=== PATIENT | male | born 1995 | race Two or more races ===

== ENCOUNTER 2022-11-01 18:01 | Outpatient (REF) | payer OTHER, SELFPAY ==
[2022-11-01 18:40] LABS: COVID-19 Test Negative (Negative); IDNOW Serial# BCCEAD1C
== END 2022-11-01 18:02 | disposition home or self-care (01) ==
LOC: HO.LAB 18:01
PROVIDERS: Visit Provider Internal Medicine
DX: Z20.822 Contact with and (suspected) exposure to COVID-19 (principal)
CPT/HCPCS: 87635

== ENCOUNTER → 2022-12-08 13:45 | Outpatient (BNVA) | payer OTHER, SELFPAY | PROVIDERS: PCP Internal Medicine; Visit Provider Urology | DX: Z13.89 Encounter for screening for other disorder (principal) ==